=== PATIENT | female | born 1980 | race Caucasian/White ===

== ENCOUNTER 2017-04-18 18:15 | Outpatient (CLI) | payer MEDICAID, OTHER ==
[2017-04-18 19:22] VITALS: BP 98/61
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
== END 2017-04-18 21:52 | disposition home or self-care (01) ==
LOC: LD 18:15 → TRG 18:15 → EDSTATUS 18:16 → LD 21:52
PROVIDERS: ATTEND Obstetrics & Gynecology
DX: O09.522 Supervision of elderly multigravida, second trimester (principal); O30.002 Twin pregnancy, unspecified number of placenta and unspecified number of amniotic sacs, second trimester; O32.2XX0 Maternal care for transverse and oblique lie, not applicable or unspecified; O47.02 False labor before 37 completed weeks of gestation, second trimester; O26.892 Other specified pregnancy related conditions, second trimester; V89.2XXD Person injured in unspecified motor-vehicle accident, traffic, subsequent encounter; Z3A.23 23 weeks gestation of pregnancy
CPT/HCPCS: 76815